=== PATIENT | male | born 1945 | race Caucasian/White ===

== ENCOUNTER 2020-11-19 17:07 | Inpatient (IN) | payer MEDICARE ==
[~2020-11-19] VITALS: Ht 185.4 cm; Wt 94.5 kg
[~2020-11-19 17:07] MED LIST: AMLO-150 PO; ASPI-496 PO; BENA40TA3 PO; CLON0.5T20 PO; HYDR-3569; LEVO150T5 PO; LEVO1CAP3 PO; NITR0.3T SL; NPH,100V5 SQ; OXYC1TAB12 PO; RANI300T PO; SIMV40TA20; VIT52OIL3 PO
[2020-11-19] MEDS ORDERED: PANTOPRAZOLE 80 MG in SODIUM CHLORIDE 0.9% 100 ML IV SCH (17:30)
[2020-11-19] MEDS ORDERED: PANTOPRAZOLE 40 MG IV IVPush ONE (17:30)
[2020-11-19] MEDS ORDERED: SODIUM CHLORIDE FLUSH 10ML SYR IVF ONE (17:30)
--- NOTE | 2020-11-19 17:34 | NUR ---
REQUEST SENT FOR [employer].
[2020-11-19] MEDS ORDERED: FERROUS SULFATE PO (17:49)
[2020-11-19] MEDS ORDERED: ALBUTEROL INH (17:49)
[2020-11-19] MEDS ORDERED: CARV3.1212 PO (17:49)
[2020-11-19] MEDS ORDERED: FURO80TA3 PO (17:49)
[2020-11-19] MEDS ORDERED: PANTOPRAZOLE 40 MG IV ONE (17:52)
[2020-11-19 17:58] LABS: MEAN CORPUSCULAR HEMOGLOBIN 31.9 pg (27.5-34.5); MEAN CORPUSCULAR HGB CONC 33.3 g/dL (33.2-36.2); MEAN PLATELET VOLUME 9.7 fL (7.4-10.4); PLATELET COUNT 93 x10^3/uL (130-400); RED BLOOD COUNT 2.28 x10^6/uL (4.38-5.82); RED CELL DISTRIBUTION WIDTH 19.8 % (9.4-14.8)
[2020-11-19 18:01] LABS: ALANINE AMINOTRANSFERASE 25 U/L (12-78); ALBUMIN 1.8 g/dL (3.4-5.0); ANION GAP 5 mmol/L (5-15); CALCIUM 6.9 mg/dL (8.5-10.1); CHLORIDE 106 mmol/L (98-107); CREATININE 4.43 mg/dL (0.7-1.3); INTERNATIONAL NORMALIZED RATIO 1.06 (0.93-1.1); PROTHROMBIN TIME 11.3 Seconds (9.6-11.5)
[2020-11-19 18:03] LABS: ALKALINE PHOSPHATASE 104 U/L (45-117); BILIRUBIN,TOTAL 0.4 mg/dL (0.2-1.0); TOTAL PROTEIN 5.7 g/dL (6.4-8.2)
--- NOTE | 2020-11-19 18:21 | NUR ---
PT UP TO BEDSIDE COMMODE WITH RN ASSIST. BACK IN BED AT THIS TIME. IVF INFUSING PER EMAR. HOB TO LEVEL OF COMFORT FOR PT. BLANKETS APPLIED.
[2020-11-19] MEDS ORDERED: TRAM100T13 PO (18:23)
[2020-11-19 18:43] LABS: BAND#(MANUAL) 0.12 x10^3/uL; BANDS%(MANUAL) 2 % (0-7); BASOS#(MANUAL) 0.06 x10^3/uL (0-0.1); BASOS% (MANUAL) 1 % (0-1); EOS#(MANUAL) 0.06 x10^3/uL (0.0-0.4); EOS% (MANUAL) 1 % (1-7); LYMPH#(MANUAL) 0.81 x10^3/uL (1-3.4); LYMPHS% (MANUAL) 14 % (22-44); MONOS#(MANUAL) 0.52 x10^3/uL (0.3-2.7); MONOS% (MANUAL) 9 % (2-9); SEG#(MANUAL) 4.23 x10^3/uL (1.8-6.8); SEGS% (MANUAL) 73 % (42-75)
[2020-11-19 18:44] LABS: ANISOCYTOSIS 1+
[2020-11-19 18:45] LABS: <PLATELET ESTIMATE> DECREASED; <PLT MORPHOLOGY> NORMAL PLT MORPH
--- NOTE | 2020-11-19 18:50 | NUR ---
BEDSIDE REPORT RECEIVED FROM REENA RUTH, PT CARE TRANSFERRED AT THIS TIME.
--- NOTE | 2020-11-19 18:59 | NUR ---
REQUEST FOR PAIN MEDS AND NICOTEINE PATCH TO DR BANUELOS. REPORT TO FARAZ DAMON.
[2020-11-19] MEDS ORDERED: HYDROmorphone 1 MG/ML, 1ML INJ IV ONE (19:00)
[2020-11-19] MEDS ORDERED: NICOTINE 21 MG/24 HR PATCH.TD24 TD ONE (19:00)
[2020-11-19] MEDS ORDERED: HYDROmorphone 2 MG/ML, 1ML ONE (19:09)
[2020-11-19] MEDS ORDERED: NICOTINE 21 MG/24 HR PATCH.TD24 ONE (19:09)
--- NOTE | 2020-11-19 19:15 | NUR ---
PT RESTING ON GURNEY, NAD, APPEARS COMFORTABLE, PROVIDED ORAL SWABS FOR COMFORT AT THIS TIME. PT MEDICATED PER MAY. [facility] BED IN [facility], RAILS ENGAGED, CALL LIGHT ON LAP, WCTM. WAITING FOR MED TELE BED ASSIGNMENT. PT DENIES ADDITIONAL QUESTIONS OR NEEDS AT THIS TIME.
[2020-11-19] MEDS ORDERED: GLUCAGON 1 MG IM PRN (20:00)
[2020-11-19] MEDS ORDERED: DEXTROSE 4 GM TAB.CHEW PO PRN (20:00)
[2020-11-19] MEDS ORDERED: ACETAMINOPHEN 325 MG TABLET PO ONE (20:00)
[2020-11-19] MEDS: PANTOPRAZOLE 40 MG IV IVPush SCH (20:00)
[2020-11-19] MEDS ORDERED: ONDANSETRON 2MG/ML, 2ML IV PRN (20:00)
--- NOTE | 2020-11-19 20:13 | NUR ---
Patient is resting comfortably in bed. Bed in lowest, rails engaged, call light on lap. Vital Signs within normal limits. pt denies additional questions or needs, WCTM.
[2020-11-19 20:40] LABS: ANION GAP 5 mmol/L (5-15); CALCIUM 6.9 mg/dL (8.5-10.1); CHLORIDE 107 mmol/L (98-107); CREATININE 4.33 mg/dL (0.7-1.3)
[2020-11-19] MEDS: INSULIN LISPRO 100 UNITS/ML, PEN SQ-INSULIN SCH (21:00)
[2020-11-19 21:05] VITALS: BP 129/74
[2020-11-19] MEDS ORDERED: ALBUTEROL HFA 90 MCG/SPRAY INH PRN (21:30)
[2020-11-19 23:41] VITALS: BP 129/74
[2020-11-20] MEDS: D5%-LACTATED RINGERS 1,000 ML IV SCH (00:42)
[2020-11-20] MEDS: SODIUM CHLORIDE FLUSH 10ML SYR IVF SCH ×2 (00:42→08:14)
[2020-11-20] MEDS ORDERED: ALBUTEROL SULFATE 2.5 MG/3 ML ONE (04:46)
[2020-11-20] MEDS ORDERED: ALBUTEROL SULFATE 2.5 MG/3 ML NPPB PRN (05:00)
[2020-11-20 05:04] VITALS: BP 135/71
[2020-11-20 05:26] VITALS: BP 120/46
[2020-11-20] MEDS: INSULIN LISPRO 100 UNITS/ML, PEN SQ-INSULIN SCH ×4 (07:00→20:20)
[2020-11-20 07:15] VITALS: BP 139/78
[2020-11-20 07:36] VITALS: BP 134/75
[2020-11-20] MEDS: INSULIN NPH HUMAN 100 UNIT/ML, 3ML VIAL SQ-INSULIN SCH (07:36)
[2020-11-20] MEDS: PANTOPRAZOLE 40 MG IV IVPush SCH (08:14)
[2020-11-20] MEDS: LEVOTHYROXINE 150 MCG TABLET PO SCH (08:14)
[2020-11-20] MEDS: CARVEDILOL 3.125 MG TABLET PO SCH (08:14)
[2020-11-20] MEDS: OXYcodone IR 5MG TABLET PO PRN ×2 (08:14→18:06)
[2020-11-20] MEDS: SIMVASTATIN 40 MG TABLET PO SCH (08:14)
[2020-11-20] MEDS ORDERED: ISOS30TA8 PO (11:43)
[2020-11-20] MEDS ORDERED: BUSP7.5T5 PO (11:43)
[2020-11-20] MEDS ORDERED: ATOR20TA86 PO (11:43)
[2020-11-20] MEDS ORDERED: LOSA100T14 PO (11:43)
[2020-11-20] MEDS ORDERED: PANT20TA4 PO (11:43)
[2020-11-20] MEDS ORDERED: GABA-826 PO (11:43)
[2020-11-20] MEDS ORDERED: CLOP75TA PO (11:43)
[2020-11-20] MEDS ORDERED: HYDR-3248 PO (11:45)
[2020-11-20 15:46] VITALS: BP 150/76
[2020-11-20] MEDS ORDERED: GOLYTELY 4,000ML ORAL.SOL PO ONE (18:00)
[2020-11-20] MEDS: NICOTINE 21 MG/24 HR PATCH.TD24 TD SCH (18:06)
[2020-11-21] VITALS (7 sets, daily range): BP systolic 147–176; BP diastolic 54–77
[2020-11-21] MEDS: OXYcodone IR 5MG TABLET PO PRN ×5 (01:17→20:23)
[2020-11-21] MEDS: CARVEDILOL 3.125 MG TABLET PO SCH ×3 (01:18→20:23)
[2020-11-21] MEDS: PANTOPRAZOLE 40 MG IV IVPush SCH ×3 (01:18→20:00)
[2020-11-21] MEDS: SODIUM CHLORIDE FLUSH 10ML SYR IVF SCH ×3 (01:19→20:24)
[2020-11-21] MEDS: D5%-LACTATED RINGERS 1,000 ML IV SCH ×2 (01:19→20:52)
[2020-11-21 06:05] LABS: BASOPHILS % (AUTO) 1 % (0-1); EOSINOPHILS % (AUTO) 2 % (1-7); LYMPHOCYTES % (AUTO) 14 % (22-44); MEAN CORPUSCULAR HEMOGLOBIN 32.1 pg (27.5-34.5); MEAN CORPUSCULAR HGB CONC 33.5 g/dL (33.2-36.2); MEAN PLATELET VOLUME 8.9 fL (7.4-10.4); MONOCYTES % (AUTO) 8 % (2-9); NEUTROPHILS % (AUTO) 75 % (42-75); PLATELET COUNT 107 x10^3/uL (130-400); RED BLOOD COUNT 2.21 x10^6/uL (4.38-5.82); RED CELL DISTRIBUTION WIDTH 20.5 % (9.4-14.8)
[2020-11-21 06:20] LABS: CHLORIDE 102 mmol/L (98-107)
[2020-11-21 06:29] LABS: ALANINE AMINOTRANSFERASE 28 U/L (12-78); ALBUMIN 1.9 g/dL (3.4-5.0); ALKALINE PHOSPHATASE 93 U/L (45-117); ANION GAP 9 mmol/L (5-15); BILIRUBIN,TOTAL 0.9 mg/dL (0.2-1.0); CALCIUM 7.8 mg/dL (8.5-10.1); CREATININE 2.89 mg/dL (0.7-1.3); TOTAL PROTEIN 5.9 g/dL (6.4-8.2)
[2020-11-21] MEDS: INSULIN LISPRO 100 UNITS/ML, PEN SQ-INSULIN SCH ×4 (07:00→20:34)
[2020-11-21] MEDS: LEVOTHYROXINE 150 MCG TABLET PO SCH (08:30)
[2020-11-21] MEDS: SIMVASTATIN 40 MG TABLET PO SCH (08:31)
[2020-11-21] MEDS: INSULIN NPH HUMAN 100 UNIT/ML, 3ML VIAL SQ-INSULIN SCH (09:00)
[2020-11-21] MEDS ORDERED: CHLORHEXIDINE 15 ML UDC ONE (14:08)
[2020-11-21] MEDS ORDERED: PROPOFOL 50 ML ONE (14:13)
[2020-11-21] MEDS ORDERED: FENTANYL PF 100 MCG/2ML IV PRN ×2 (14:30→15:30)
[2020-11-21] MEDS ORDERED: OXYcodone 5 MG/5 ML ORAL.SOL UDC PO PRN ×2 (14:30→15:30)
[2020-11-21] MEDS ORDERED: ONDANSETRON 2MG/ML, 2ML IVPush PRN (14:30)
[2020-11-21] MEDS ORDERED: ACETAMINOPHEN 325 MG TABLET PO PRN (15:30)
[2020-11-21] MEDS ORDERED: hydrALAzine 20 MG/ML, 1ML IV PRN (15:30)
[2020-11-21] MEDS ORDERED: LABETALOL 5MG/ML, 20ML IV PRN (15:30)
[2020-11-21] MEDS: NICOTINE 21 MG/24 HR PATCH.TD24 TD SCH (20:24)
[2020-11-22] VITALS (7 sets, daily range): BP systolic 100–161; BP diastolic 55–73
[2020-11-22] MEDS: OXYcodone IR 5MG TABLET PO PRN ×3 (02:36→20:45)
[2020-11-22 02:45] LABS: ALBUMIN 1.8 g/dL (3.4-5.0); ANION GAP 12 mmol/L (5-15); CALCIUM 7.5 mg/dL (8.5-10.1); CHLORIDE 102 mmol/L (98-107)
[2020-11-22] MEDS: INSULIN LISPRO 100 UNITS/ML, PEN SQ-INSULIN SCH ×4 (07:00→20:35)
[2020-11-22] MEDS: LEVOTHYROXINE 150 MCG TABLET PO SCH (08:55)
[2020-11-22] MEDS: SIMVASTATIN 40 MG TABLET PO SCH (08:55)
[2020-11-22] MEDS: PANTOPRAZOLE 40 MG IV IVPush SCH ×2 (08:56→20:47)
[2020-11-22] MEDS: CARVEDILOL 3.125 MG TABLET PO SCH ×2 (08:56→20:46)
[2020-11-22] MEDS: SODIUM CHLORIDE FLUSH 10ML SYR IVF SCH ×2 (08:56→20:47)
[2020-11-22] MEDS: INSULIN NPH HUMAN 100 UNIT/ML, 3ML VIAL SQ-INSULIN SCH (10:18)
[2020-11-22] MEDS: D5%-LACTATED RINGERS 1,000 ML IV SCH (11:49)
[2020-11-22] MEDS ORDERED: HYDROcodone/APAP 10/325 MG TABLET PO PRN (13:30)
[2020-11-22] MEDS: NICOTINE 21 MG/24 HR PATCH.TD24 TD SCH (14:21)
[2020-11-22] MEDS: DEXTROSE 50%, 50ML SYRINGE IVPush PRN (20:23)
[2020-11-22] MEDS: BUSPIRONE 5 MG TABLET PO SCH (20:46)
[2020-11-22] MEDS: FUROSEMIDE 80 MG TABLET PO SCH (20:46)
[2020-11-22] MEDS: GABAPENTIN 100 MG CAPSULE PO SCH (20:47)
[2020-11-23] MEDS: OXYcodone IR 5MG TABLET PO PRN ×5 (00:38→20:57)
[2020-11-23 00:41] VITALS: BP 129/72
[2020-11-23] MEDS: DEXTROSE 50%, 50ML SYRINGE IVPush PRN (03:37)
[2020-11-23 05:40] LABS: CHLORIDE 103 mmol/L (98-107)
[2020-11-23 05:44] LABS: ALBUMIN 1.8 g/dL (3.4-5.0); ANION GAP 3 mmol/L (5-15); CALCIUM 7.5 mg/dL (8.5-10.1); CREATININE 2.21 mg/dL (0.7-1.3)
[2020-11-23] MEDS: INSULIN LISPRO 100 UNITS/ML, PEN SQ-INSULIN SCH ×4 (07:00→20:53)
[2020-11-23] MEDS: D5%-LACTATED RINGERS 1,000 ML IV SCH (07:38)
[2020-11-23 08:45] VITALS: BP 152/69
[2020-11-23] MEDS: INSULIN NPH HUMAN 100 UNIT/ML, 3ML VIAL SQ-INSULIN SCH (09:00)
[2020-11-23] MEDS: VIT D3 HOMEMEDPO SCH (09:00)
[2020-11-23] MEDS: [UNRECOGNIZED DRUG - OTHER] HOMEMEDPO SCH (09:00)
[2020-11-23] MEDS: VIT E AC HOMEMEDPO SCH (09:00)
[2020-11-23] MEDS: PANTOPRAZOLE 40 MG IV IVPush SCH ×2 (09:08→20:00)
[2020-11-23] MEDS: CARVEDILOL 3.125 MG TABLET PO SCH ×2 (09:08→20:52)
[2020-11-23] MEDS: FUROSEMIDE 80 MG TABLET PO SCH ×2 (09:09→20:52)
[2020-11-23] MEDS: LEVOTHYROXINE 150 MCG TABLET PO SCH (09:10)
[2020-11-23] MEDS: NICOTINE 21 MG/24 HR PATCH.TD24 TD SCH (09:10)
[2020-11-23] MEDS: ATORVASTATIN 20 MG TABLET PO SCH (09:10)
[2020-11-23] MEDS: ISOSORBIDE MONONITRATE ER 30 MG TABLET PO SCH (09:11)
[2020-11-23] MEDS: GABAPENTIN 100 MG CAPSULE PO SCH ×2 (09:11→20:52)
[2020-11-23] MEDS: BUSPIRONE 5 MG TABLET PO SCH ×2 (09:11→20:52)
[2020-11-23] MEDS: AMLODIPINE 5 MG TABLET PO SCH (09:13)
[2020-11-23] MEDS: SODIUM CHLORIDE FLUSH 10ML SYR IVF SCH ×2 (09:47→20:53)
[2020-11-23] MEDS ORDERED: OMNIPAQUE 350 MG/ML, 100ML BOTTLE ONE (11:49)
[2020-11-23 14:00] VITALS: BP 131/69
[2020-11-23 19:22] VITALS: BP 154/62
[2020-11-24] MEDS: OXYcodone IR 5MG TABLET PO PRN ×4 (01:05→20:21)
[2020-11-24] MEDS: D5%-LACTATED RINGERS 1,000 ML IV SCH (01:05)
[2020-11-24 01:12] VITALS: BP 125/68
[2020-11-24 02:14] LABS: BASOPHILS % (AUTO) 1 % (0-1); EOSINOPHILS % (AUTO) 4 % (1-7); LYMPHOCYTES % (AUTO) 15 % (22-44); MEAN CORPUSCULAR HEMOGLOBIN 30.1 pg (27.5-34.5); MEAN CORPUSCULAR HGB CONC 32.6 g/dL (33.2-36.2); MEAN PLATELET VOLUME 8.8 fL (7.4-10.4); MONOCYTES % (AUTO) 8 % (2-9); NEUTROPHILS % (AUTO) 73 % (42-75); PLATELET COUNT 84 x10^3/uL (130-400); RED CELL DISTRIBUTION WIDTH 22.9 % (9.4-14.8)
[2020-11-24 02:18] LABS: ALBUMIN 1.8 g/dL (3.4-5.0); ANION GAP 3 mmol/L (5-15); CALCIUM 7.5 mg/dL (8.5-10.1); CHLORIDE 101 mmol/L (98-107)
[2020-11-24 02:21] LABS: ALANINE AMINOTRANSFERASE 33 U/L (12-78); ALKALINE PHOSPHATASE 102 U/L (45-117); BILIRUBIN,TOTAL 0.5 mg/dL (0.2-1.0); TOTAL PROTEIN 5.4 g/dL (6.4-8.2)
[2020-11-24] MEDS: INSULIN LISPRO 100 UNITS/ML, PEN SQ-INSULIN SCH ×4 (07:40→20:22)
[2020-11-24] MEDS: PANTOPRAZOLE 40 MG IV IVPush SCH (08:13)
[2020-11-24] MEDS: NICOTINE 21 MG/24 HR PATCH.TD24 TD SCH (08:14)
[2020-11-24] MEDS: ATORVASTATIN 20 MG TABLET PO SCH (08:16)
[2020-11-24] MEDS: LEVOTHYROXINE 150 MCG TABLET PO SCH (08:16)
[2020-11-24] MEDS: CARVEDILOL 3.125 MG TABLET PO SCH ×2 (08:16→20:21)
[2020-11-24] MEDS: BUSPIRONE 5 MG TABLET PO SCH ×2 (08:16→20:27)
[2020-11-24] MEDS: ISOSORBIDE MONONITRATE ER 30 MG TABLET PO SCH (08:16)
[2020-11-24] MEDS: AMLODIPINE 5 MG TABLET PO SCH (08:16)
[2020-11-24] MEDS: FUROSEMIDE 80 MG TABLET PO SCH ×2 (08:16→20:21)
[2020-11-24] MEDS: SODIUM CHLORIDE FLUSH 10ML SYR IVF SCH ×2 (08:17→20:22)
[2020-11-24] MEDS: [UNRECOGNIZED DRUG - OTHER] HOMEMEDPO SCH (08:17)
[2020-11-24] MEDS: VIT D3 HOMEMEDPO SCH (08:17)
[2020-11-24] MEDS: VIT E AC HOMEMEDPO SCH (08:17)
[2020-11-24] MEDS: GABAPENTIN 100 MG CAPSULE PO SCH ×2 (09:00→20:21)
[2020-11-24] MEDS: INSULIN GLARGINE 100 UNITS/ML, PEN SQ-INSULIN SCH ×2 (09:00→09:01)
[2020-11-24 09:04] VITALS: BP 133/89
[2020-11-24 12:22] VITALS: BP 141/69
[2020-11-24] MEDS: PANTOPRAZOLE 40MG TABLET PO SCH (16:13)
[2020-11-24 18:53] VITALS: BP 103/60
[2020-11-24] MEDS ORDERED: INSULIN GLARGINE 100 UNITS/ML, PEN SQ-INSULIN SCH (21:00)
[2020-11-25 00:09] VITALS: BP 111/71
[2020-11-25] MEDS: OXYcodone IR 5MG TABLET PO PRN ×4 (00:57→10:50)
[2020-11-25] MEDS: PANTOPRAZOLE 40MG TABLET PO SCH (05:32)
[2020-11-25 06:46] VITALS: BP 146/70
[2020-11-25] MEDS: INSULIN LISPRO 100 UNITS/ML, PEN SQ-INSULIN SCH ×2 (07:00→11:00)
[2020-11-25] MEDS: VIT E AC HOMEMEDPO SCH (09:00)
[2020-11-25] MEDS: LEVOTHYROXINE 150 MCG TABLET PO SCH (09:00)
[2020-11-25] MEDS ORDERED: INSULIN GLARGINE 100 UNITS/ML, PEN SQ-INSULIN SCH ×2 (09:00→21:00)
[2020-11-25] MEDS: [UNRECOGNIZED DRUG - OTHER] HOMEMEDPO SCH (09:00)
[2020-11-25] MEDS: VIT D3 HOMEMEDPO SCH (09:00)
[2020-11-25 09:34] LABS: ANION GAP 4 mmol/L (5-15); CALCIUM 7.4 mg/dL (8.5-10.1); CHLORIDE 99 mmol/L (98-107); CREATININE 3.98 mg/dL (0.7-1.3)
[2020-11-25 10:27] VITALS: BP 123/52
[2020-11-25 10:43] VITALS: BP 131/59
[2020-11-25 10:46] VITALS: BP 146/70
[2020-11-25 12:51] VITALS: BP 154/71
[2020-11-25] MEDS: SODIUM CHLORIDE FLUSH 10ML SYR IVF SCH (12:54)
[2020-11-25] MEDS: GABAPENTIN 100 MG CAPSULE PO SCH (12:55)
[2020-11-25] MEDS: ISOSORBIDE MONONITRATE ER 30 MG TABLET PO SCH (12:55)
[2020-11-25] MEDS: CARVEDILOL 3.125 MG TABLET PO SCH (12:55)
[2020-11-25] MEDS: BUSPIRONE 5 MG TABLET PO SCH (12:55)
[2020-11-25] MEDS: AMLODIPINE 5 MG TABLET PO SCH (12:55)
[2020-11-25] MEDS: NICOTINE 21 MG/24 HR PATCH.TD24 TD SCH (12:56)
[2020-11-25] MEDS: ATORVASTATIN 20 MG TABLET PO SCH (12:56)
[2020-11-25] MEDS: FUROSEMIDE 80 MG TABLET PO SCH (12:56)
[2020-11-25] MEDS ORDERED: ISOS30TA8 PO (13:24)
[2020-11-25] MEDS ORDERED: NICO-587 TD (13:24)
[2020-11-25] MEDS ORDERED: CARV3.1212 PO (13:24)
[2020-11-25] MEDS ORDERED: LOSA100T14 PO (13:24)
[2020-11-25] MEDS ORDERED: PANT40TA6 PO (13:24)
[2020-11-26] MEDS ORDERED: FURO80TA3 PO (01:41)
[2020-11-26] MEDS ORDERED: NPH,100V5 SQ (01:41)
== END 2020-11-25 15:16 | disposition home health service (06) | DRG 377 ==
LOC: ED 17:37 → EDIP 18:59 → 4EST 20:54 → 4WST 11-21 17:43
PROVIDERS: ADMIT Internal Medicine; ATTEND Internal Medicine
PROC: 30233N1 Transfusion of Nonautologous Red Blood Cells into Peripheral Vein, Percutaneous Approach (ICD-10-PCS; 2020-11-20)
PROC: 5A1D70Z Performance of Urinary Filtration, Intermittent, Less than 6 Hours Per Day (ICD-10-PCS; 2020-11-20)
PROC: 5A1D70Z Performance of Urinary Filtration, Intermittent, Less than 6 Hours Per Day (ICD-10-PCS; 2020-11-21)
PROC: 0DB98ZX Excision of Duodenum, Via Natural or Artificial Opening Endoscopic, Diagnostic (ICD-10-PCS; principal; 2020-11-21 14:30)
PROC: 0DJD8ZZ Inspection of Lower Intestinal Tract, Via Natural or Artificial Opening Endoscopic (ICD-10-PCS; 2020-11-21 14:30)
PROC: 5A1D70Z Performance of Urinary Filtration, Intermittent, Less than 6 Hours Per Day (ICD-10-PCS; 2020-11-22)
PROC: 5A1D70Z Performance of Urinary Filtration, Intermittent, Less than 6 Hours Per Day (ICD-10-PCS; 2020-11-24)
DX: K92.1 Melena (principal); N18.6 End stage renal disease; D62 Acute posthemorrhagic anemia; E11.52 Type 2 diabetes mellitus with diabetic peripheral angiopathy with gangrene; I96 Gangrene, not elsewhere classified; I12.0 Hypertensive chronic kidney disease with stage 5 chronic kidney disease or end stage renal disease; Z20.822 Contact with and (suspected) exposure to COVID-19; Z99.2 Dependence on renal dialysis; D63.1 Anemia in chronic kidney disease; D69.6 Thrombocytopenia, unspecified; E11.22 Type 2 diabetes mellitus with diabetic chronic kidney disease; E11.649 Type 2 diabetes mellitus with hypoglycemia without coma; E11.65 Type 2 diabetes mellitus with hyperglycemia; F17.210 Nicotine dependence, cigarettes, uncomplicated; F19.10 Other psychoactive substance abuse, uncomplicated; F40.240 Claustrophobia; G89.29 Other chronic pain; I25.10 Atherosclerotic heart disease of native coronary artery without angina pectoris; J44.9 Chronic obstructive pulmonary disease, unspecified; K21.9 Gastro-esophageal reflux disease without esophagitis; Z79.4 Long term (current) use of insulin; Z79.891 Long term (current) use of opiate analgesic; Z91.15 Patient's noncompliance with renal dialysis; Z99.81 Dependence on supplemental oxygen; Z79.899 Other long term (current) drug therapy
CPT/HCPCS: 36415; 36430; 74174; 78278; 80048; 80053; 80069; 82306; 82607; 82728; 82947; 82962; 83036; 83540; 83550; 83735; 83970; 84100; 85014; 85018; 85025; 85610; 85730; 86704; 86706; 86850; 86900; 86923; 87338; 87340; 87635; 88305; 90935; 93005; 93922; 93925; 94640; 96374; G0378; J1170; J1815; J2704; J7613; Q9967; A9560; C9113; J1642; J7121; P9016